=== PATIENT | female | born 1980 | race African-American/Black ===

== ENCOUNTER 2018-05-27 08:22 | Emergency (ER) | payer OTHER ==
[~2018-05-27] VITALS: Ht 167.6 cm; Wt 64.9 kg
[~2018-05-27 08:22] MED LIST: ZPAK PO
[2018-05-27 08:48] LABS: URINE CLARITY SL HAZY; URINE COLOR YELLOW; URINE GLUCOSE-RANDOM* NEGATIVE (Negative); URINE PROTEIN (DIPSTICK) NEGATIVE (Negative)
[2018-05-27 08:49] LABS: URINE BILIRUBIN NEGATIVE (Negative); URINE BLOOD 3+ (Negative); URINE KETONES NEGATIVE (Negative); URINE LEUKOCYTES-REFLEX NEGATIVE (Negative); URINE NITRITE-REFLEX NEGATIVE (Negative); URINE UROBILINOGEN 0.2 E.U./dl (0.2-1.0)
[2018-05-27 09:06] LABS: BACTERIA-REFLEX None Seen /HPF (None Seen); CASTS None Seen /LPF (None Seen); CRYSTALS None Seen /LPF (None Seen); SQUAMOUS 0-3 Few /LPF (0-3); URINE RBC >20 Many /HPF (0-2); URINE WBC-REFLEX 0-5 Rare /HPF (0-5)
[2018-05-27 09:15] LABS: ABSOLUTE NEUTROPHILS 6.3 thou/uL (1.4-8.2); BASOPHILS 0.5 % (0.0-2.0); EOSINOPHILS 0.1 % (0.0-3.0); HEMOGLOBIN 12.5 gm/dL (12.0-15.0); LYMPHOCYTES 14.9 % (24.0-44.0); MCH 31.4 pg (26.0-34.0); MCHC 33.9 g/dL (28.0-37.0); MCV 92.6 fL (80.0-100.0); MONOCYTES 7.1 % (1.0-8.0); PLATELET COUNT 311 thou/uL (150-400); POLYS 77.4 % (36.0-66.0); RBC 3.99 mil/uL (4.20-5.00); RDW 12.3 % (10.5-14.5); WBC 8.2 thou/uL (4.0-11.0)
[2018-05-27 09:25] LABS: CALCIUM 9.6 mg/dL (8.5-10.1); CREATININE 1.1 mg/dL (0.6-1.0)
[2018-05-27 09:32] LABS: ALBUMIN 3.6 g/dL (3.4-5.0); TOTAL BILIRUBIN 0.4 mg/dL (<0.1-1.0); TOTAL PROTEIN 8.4 g/dL (6.4-8.2)
[2018-05-27 11:05] VITALS: BP 100/59
== END 2018-05-27 11:05 | disposition home or self-care (01) ==
LOC: ER 08:22
PROVIDERS: Emergency Medicine; Physician Assistant
DX: O20.0 Threatened abortion (principal); Z3A.08 8 weeks gestation of pregnancy